=== PATIENT | female | born 1985 ===

== ENCOUNTER 2025-04-19 09:50 | Emergency (ER) | payer SELFPAY ==
[2025-04-19 09:57] VITALS: BP 131/87
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
--- NOTE | 2025-04-19 10:51 | CM ---
Patient seen in ED. Patient states that she needs a ride home to [place], no other options. CM to arrange a ride via uber. CM will continue to follow for discharge planning needs.
Plan; home with follow up as needed.
[2025-04-19 15:25] LABS: HCG, Urine Qualitative Screen Negative
[2025-04-19] MEDS: ZOFRAN ODT (ORALLY DISINTEGRATING) 4 MG PO (16:10)
[2025-04-19] MEDS: TRUVADA TABLET 1 TABLET PO (16:11)
[2025-04-19] MEDS: VIBRAMYCIN 100 MG PO (16:11)
[2025-04-19] MEDS: ROCEPHIN 500 MG IM ×2 (16:11→16:12)
[2025-04-19] MEDS: PLAN B ONE-STEP, NEXT CHOICE 1 TABLET PO (16:12)
[2025-04-19] MEDS: FLAGYL 500 MG PO (16:12)
[2025-04-19] MEDS: ISENTRESS 400 MG PO (16:12)
[2025-04-19] MEDS: ADACEL 0.5 ML IM (16:17)
== END 2025-04-19 16:46 | disposition home or self-care (01) ==
LOC: EMR 09:50
PROVIDERS: EMERGENCY PHYSICIAN Emergency Medicine
DX: T76.21XA Adult sexual abuse, suspected, initial encounter (principal); Y92.9 Unspecified place or not applicable; Z23 Encounter for immunization
CPT/HCPCS: 99283; 90471; 96372; 81025; 87389; 90715